=== PATIENT | female | born 1980 | race Caucasian/White ===

== ENCOUNTER 2017-10-14 17:54 | Inpatient (IN) | payer MEDICAID, OTHER ==
[~2017-10-14] VITALS: Ht 162.6 cm; Wt 67.0 kg
[~2017-10-14 17:54] MED LIST: CYCL-36 PO; ZOLO100T PO
[2017-10-14 18:09] VITALS: BP 143/83; PULSE 111; RESP 17; TEMP 98.3; O2SAT 99
[2017-10-14 19:37] VITALS: BP 138/83; PULSE 106; RESP 18; O2SAT 99
--- NOTE | 2017-10-14 19:46 | PD ---
HPI Chief Complaint: Neuro Symptoms/ Deficits Time Seen by Provider: 19:33 Travel History International Travel<30 days: No Contact w/Intl Traveler<30days: No Traveled to known affect area: No History of Present Illness HPI 37-year-old female presents for evaluation. She reports that yesterday evening she developed weakness in arms and legs. Specifically she reports that she developed weakness in her right leg, then her left leg, shortly thereafter in both arms. She felt like she was dragging her feet. 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 She follows up with her primary care physician, Dr. Nielsen, who spoke with neurologist Dr. Castellanos and it was recommended that he come here for admission and neurology consult. She reports that the weakness in her arms has resolved but her legs still feel weak. She also reports a headache. She also reports that she had some word finding issues yesterday. H symptoms are moderate with no obvious aggravating or relieving factors. She denies any bowel or bladder incontinence, saddle anesthesia, abdominal pain, chest pain, shortness of breath, edema. She denies any recent travel. She denies any recent abdominal or pulmonary illness. She denies any ocular pain or blurred vision. She reports the past surgical history of hysterectomy as well as fusion of the T2-S1 spine in the past. She has never had this problem before. She does report that she has been having myalgias in her upper and lower extremities for the past several months and her primary care physician diagnosed her with peripheral neuropathy. [facility] Past Medical History Hypertension: Yes Neurologic: Yes (nueropathy) ?: Not Past Surgical History Appendectomy: Yes Section: Yes Neurologic Surgery: Yes (spinal fusion) Social History Alcohol Use: No Tobacco Use: Yes Substance Use: No Allergies-Medications (Allergen,Severity, Reaction): Coded Allergies: No Known Allergies (Unverified , 04/20/15) Reported Meds & Prescriptions Reported Meds & Active Scripts Active Reported Hydrochlorothiazide 12.5 Mg Cap 12.5 Mg PO DAILY Zantac (Ranitidine HCl) 150 Mg Tab 150 Mg PO DAILY Adderall Xr 24 HR (Amphetamine/Dextroamphetamine) 20 Mg Cap 20 Mg PO DAILY Once daily in the morning. Review of Systems Except as stated in HPI: all other systems reviewed are Neg Physical Exam Narrative GENERAL: Well-developed well-nourished female no acute distress SKIN: Warm and dry. HEAD: Atraumatic. Normocephalic. EYES: Pupils equal and round. No scleral icterus. No injection or drainage. ENT: No nasal bleeding or discharge. Mucous membranes pink and moist. NECK: Trachea midline. No JVD. CARDIOVASCULAR: Regular rate and rhythm. No murmur appreciated. RESPIRATORY: No accessory muscle use. Clear to auscultation. Breath sounds equal bilaterally. GASTROINTESTINAL: Abdomen soft, non-tender, nondistended. Hepatic and splenic margins not palpable. MUSCULOSKELETAL: No obvious deformities. Some limited range of motion in the lower extremities at the hip, knee and ankle level. 4 out of 5 muscle strength hip flexion and extension, leg flexion and extension, dorsi and plantar flexion , 5 out of 5 muscle strength arm flexion and extension, vice president payment strength appears normal. NEUROLOGICAL: Awake and alert. No obvious cranial nerve deficits. Motor grossly within normal limits. Normal speech. Sensation is intact in the upper and lower extremities. 2+ biceps tendon reflex bilaterally. 1+ Achilles and patellar tendon reflex bilaterally. Negative Babinski. No clonus. PSYCHIATRIC: Appropriate mood and affect; insight and judgment normal. Data Data Last Documented VS Vital Signs Date Time Temp Pulse Resp B/P (MAP) Pulse Ox O2 Delivery O2 Flow Rate FiO2 10/14/17 19:37 106 18 138/83 (101) 99 Room Air 10/14/17 18:09 98.3 Orders Orders Electrocardiogram (10/14/17 19:37) Prothrombin Time / Inr (Pt) (10/14/17 19:37) Act Partial Throm Time (Ptt) (10/14/17 19:37) Complete Blood Count With Diff (10/14/17 19:37) Basic Metabolic Panel (Bmp) (10/14/17 19:37) Creatine Kinase (Cpk) (10/14/17 19:37) Urinalysis - C+S If Indicated (10/14/17 19:37) Iv Access Insert/Monitor (10/14/17 19:37) Magnesium (Mg) (10/14/17 19:37) Mri Brain W&W/O Contrast (10/14/17 ) Mri C Spine W&W/O Contrast (10/14/17 ) Mri T Spine W & W/O Contrast (10/14/17 ) Mri L Spine W&W/O Contrast (10/14/17 ) Mra Brain W/O Contrast (Cow) (10/14/17 ) Mra Carotids W/O Contrast (10/14/17 ) Consult Neurology (10/14/17 ) Oxycodone-Acetamin 5-325 Mg (Percocet (10/14/17 20:15) (Hub Use Only)Inp Phy Cons/Ref (10/14/17 ) Csf Cell Count + Differential (10/14/17 21:22) Total Protein, Csf (10/14/17 21:22) Glucose, Csf (10/14/17 21:22) Csf B.Burgdorfer Igg&Igm Lymes (10/14/17 21:22) Csf B.Burgdorferi Dna Lymes (10/14/17 21:22) Lumbar Puncture (10/14/17 ) Csf Culture And Gram Stain (10/14/17 21:22) Admit Order (Ed Use Only) (10/14/17 21:22) Labs Laboratory Tests Test 10/14/17 20:00 White Blood Count 11.2 TH/MM3 Red Blood Count 4.62 MIL/MM3 Hemoglobin 14.3 GM/DL Hematocrit 41.9 % Mean Corpuscular Volume 90.6 FL Mean Corpuscular Hemoglobin 31.0 PG Mean Corpuscular Hemoglobin Concent 34.2 % Red Cell Distribution Width 13.2 % Platelet Count 188 TH/MM3 Mean Platelet Volume 10.9 FL Neutrophils (%) (Auto) 82.5 % Lymphocytes (%) (Auto) 7.3 % Monocytes (%) (Auto) 10.0 % Eosinophils (%) (Auto) 0.0 % Basophils (%) (Auto) 0.2 % Neutrophils # (Auto) 9.2 TH/MM3 Lymphocytes # (Auto) 0.8 TH/MM3 Monocytes # (Auto) 1.1 TH/MM3 Eosinophils # (Auto) 0.0 TH/MM3 Basophils # (Auto) 0.0 TH/MM3 CBC Comment DIFF FINAL Differential Comment Prothrombin Time 10.0 SEC Prothromb Time International Ratio 1.0 RATIO Activated Partial Thromboplast Time 27.6 SEC Blood Urea Nitrogen 10 MG/DL Creatinine 0.74 MG/DL Random Glucose 95 MG/DL Calcium Level 10.0 MG/DL Magnesium Level 2.1 MG/DL Sodium Level 139 MEQ/L Potassium Level 3.3 MEQ/L Chloride Level 102 MEQ/L Carbon Dioxide Level 25.1 MEQ/L Anion Gap 12 MEQ/L Estimat Glomerular Filtration Rate 88 ML/MIN Total Creatine Kinase 124 U/L MDM Medical Decision Making Medical Screen Exam Complete: Yes Emergency Medical Condition: Yes Medical Record Reviewed: Yes Differential Diagnosis Gullian [place] versus multiple sclerosis versus spinal stenosis Narrative Course 37-year-old female with complaints of weakness in extremities started yesterday. We will obtain basic lab work, will discuss with the on-call neurologist. Discussed with neurologist Dr. Castellanos requests routine MRIs of the brain, cervical, thoracic, lumbar spine with and without contrast as well as MRA of the brain and carotids, likely will require lumbar puncture tomorrow as well as routine neurology consult. Diagnosis Primary Impression: Upper extremity weakness Additional Impression: Lower extremity weakness Admitting Information Admitting Physician Requests: Admit Germain Franks Oct 14, 2017 19:46
[2017-10-14] MEDS ORDERED: HYDR12.57 PO (19:49)
[2017-10-14] MEDS ORDERED: ZANT150T2 PO (19:49)
[2017-10-14] MEDS ORDERED: ADDE20XR PO (19:49)
--- NOTE | 2017-10-14 20:10 | PD ---
Data Data Last Documented VS Vital Signs Date Time Temp Pulse Resp B/P (MAP) Pulse Ox O2 Delivery O2 Flow Rate FiO2 10/14/17 19:37 106 18 138/83 (101) 99 Room Air 10/14/17 18:09 98.3 Orders Orders Electrocardiogram (10/14/17 19:37) Prothrombin Time / Inr (Pt) (10/14/17 19:37) Act Partial Throm Time (Ptt) (10/14/17 19:37) Complete Blood Count With Diff (10/14/17 19:37) Basic Metabolic Panel (Bmp) (10/14/17 19:37) Creatine Kinase (Cpk) (10/14/17 19:37) Urinalysis - C+S If Indicated (10/14/17 19:37) Iv Access Insert/Monitor (10/14/17 19:37) Magnesium (Mg) (10/14/17 19:37) Mri Brain W&W/O Contrast (10/14/17 ) Mri C Spine W&W/O Contrast (10/14/17 ) Mri T Spine W & W/O Contrast (10/14/17 ) Mri L Spine W&W/O Contrast (10/14/17 ) Mra Brain W/O Contrast (Cow) (10/14/17 ) Mra Carotids W/O Contrast (10/14/17 ) Consult Neurology (10/14/17 ) MDM Supervised Visit with BEN: Yes Narrative Course The history, exam, and medical decision-making in the associated mid-level provider note were completed with my assistance. I reviewed and agree with the findings presented. I attest that I had a [id number] encounter with the patient on the same day, and personally performed and documented my assessment and findings in the medical record. *My assessment and Findings: 37-year-old woman presents to the emergency department referred by her primary physician for evaluation of abnormal neurologic symptoms. She has been having weakness paresthesias arms and legs, worse in the lower extremities. Intermittent with some fluctuating course, progressive over the past 24 hours or so. Went to an outside ED had CT scans of her head neck and lower back that were reportedly unremarkable. She is a history of s was seems to be fairly extensive spinal fusion for scoliosis. No history of previous similar symptoms otherwise. She does have some chronic pain issues is been ongoing fairly diffuse in her arms and legs for several months. Was seeing a neurosurgeon, Dr. Stewart, recommended surgery on her neck. She did not want to have any more fusions done shows overall well now. No severe neurologic deficits but does have some subtle findings on neurologic exam. Her primary care physician only spoke with Dr. Castellanos, neurology on-call. We will plan on admission, MRI imaging, further workup. Gilberto Price MD Oct 14, 2017 20:10
[2017-10-14] MEDS ORDERED: oxyCODONE/ACETAMINOPHEN 5 MG/325 MG TAB PO ONE (20:15)
[2017-10-14 20:50] LABS: AUTOMATED NEUTROPHIL # 9.2 TH/MM3 (1.8-7.7); BASOPHIL % 0.2 % (0.0-2.0); HEMATOCRIT 41.9 % (35.0-46.0); HEMOGLOBIN 14.3 GM/DL (11.6-15.3); LYMPH % 7.3 % (9.0-44.0); LYMPHOCYTE # 0.8 TH/MM3 (1.0-4.8); MEAN CELL VOLUME 90.6 FL (80.0-100.0); MEAN CORPUSCULAR HGB CONC 34.2 % (32.0-36.0); MEAN PLATELET VOLUME 10.9 FL (7.0-11.0); MONOCYTE # 1.1 TH/MM3 (0-0.9); NEUT % 82.5 % (16.0-70.0); PLATELET COUNT 188 TH/MM3 (150-450); RED BLOOD COUNT 4.62 MIL/MM3 (4.00-5.30); RED CELL DISTRIBUTION WIDTH 13.2 % (11.6-17.2); WHITE BLOOD COUNT 11.2 TH/MM3 (4.0-11.0)
[2017-10-14 21:04] LABS: BICARBONATE 25.1 MEQ/L (21.0-32.0); CREATININE 0.74 MG/DL (0.50-1.00); MAGNESIUM 2.1 MG/DL (1.5-2.5)
[2017-10-14] MEDS ORDERED: ACETAMINOPHEN 325 MG TAB PO PRN (22:30)
[2017-10-14] MEDS ORDERED: POTASSIUM CHLORIDE 10 MEQ CONTROLLED RELEASE TAB PO ONE (22:30)
[2017-10-14] MEDS ORDERED: SODIUM CHLORIDE 0.9% FLUSH 10 ML FLUSH IV FLUSH PRN (22:30)
[2017-10-14] MEDS ORDERED: NALOXONE HCL 0.4 MG/ML AMP IV PUSH PRN (22:30)
[2017-10-14] MEDS ORDERED: LORazepam 2 MG/ML VIAL IV PUSH PRN (23:30)
[2017-10-14 23:32] VITALS: BP 108/65; PULSE 87; RESP 16; TEMP 98.4; O2SAT 96
--- NOTE | 2017-10-14 23:47 | HHI.HP ---
HPI Service [facility] Primary Care Physician Unknown Admission Diagnosis Acute extremity weakness Diagnoses: Travel History International Travel<30 Days: No Contact w/Intl Traveler <30 Da: No Traveled to Known Affected Are: No History of Present Illness 37-year-old female with past medical history significant for scoliosis, hypertension, hyperlipidemia and peripheral neuropathy presents emergency department for evaluation of upper and lower extremity weakness. The patient reports that yesterday she had bilateral foot weakness that then spread from her right leg to her left leg. She reports she was so weak she was unable to ambulate. She was seen at [facility] where a CT of the head and neck were found to be within normal limits. The patient reports that yesterday on her way to the hospital she then developed bilateral upper extremity weakness and had difficulty moving her arms and hands. She was discharged from [facility] with instructions to follow-up with her primary care physician which she did today. The patient saw her PCP who then called the neurologist on-call who suggested coming to the emergency department for further evaluation. The patient reports that her upper extremity weakness has mostly resolved but endorses intermittent slurred speech. She complains of bilateral thigh and hip pain and states her sciatica is acting up. She also endorses a headache. She denies any chest pain or shortness of breath. No abdominal pain. No nausea/vomiting/diarrhea. Review of Systems Except as stated in HPI: all other systems reviewed are Neg Past Family Social History Past Medical History scoliosis, hypertension, hyperlipidemia and peripheral neuropathy Past Surgical History T2-S1 fusion for scoliosis 2 Appendectomy Hysterectomy Breast augmentation Reported Medications Reported Meds & Active Scripts Active Reported Hydrochlorothiazide 12.5 Mg Cap 12.5 Mg PO DAILY Zantac (Ranitidine HCl) 150 Mg Tab 150 Mg PO DAILY Adderall Xr 24 HR (Amphetamine/Dextroamphetamine) 20 Mg Cap 20 Mg PO DAILY Once daily in the morning. Allergies: Coded Allergies: No Known Allergies (Unverified Allergy, Unknown, 10/14/17) Family History Father with diabetes mellitus Social History Smokes approximately 1 pack per day. Rare alcohol. Denies illicit drugs. Physical Exam Vital Signs Vital Signs Date Time Temp Pulse Resp B/P (MAP) Pulse Ox O2 Delivery O2 Flow Rate FiO2 10/14/17 23:32 98.4 87 16 108/65 (79) 96 10/14/17 19:37 106 18 138/83 (101) 99 Room Air 10/14/17 19:37 106 22 99 Room Air 10/14/17 18:09 98.3 111 17 143/83 (103) 99 Physical Exam GENERAL: This is a well-nourished, well-developed patient, in no apparent distress. SKIN: No rashes, ecchymoses or lesions. Cool and dry. HEAD: Atraumatic. Normocephalic. No temporal or scalp tenderness. EYES: Pupils equal round and reactive. Extraocular motions intact. No scleral icterus. No injection or drainage. ENT: Nose without bleeding, purulent drainage or septal hematoma. Throat without erythema, tonsillar hypertrophy or exudate. Uvula midline. Airway patent. NECK: Trachea midline. No JVD or lymphadenopathy. Supple, nontender, no meningeal signs. CARDIOVASCULAR: Regular rate and rhythm without murmurs, gallops, or rubs. RESPIRATORY: Clear to auscultation. Breath sounds equal bilaterally. No wheezes , rales, or rhonchi. GASTROINTESTINAL: Abdomen soft, non-tender, nondistended. No hepato-splenomegaly , or palpable masses. No guarding. MUSCULOSKELETAL: Extremities without clubbing, cyanosis, or edema. No joint tenderness, effusion, or edema noted. No calf tenderness. NEUROLOGICAL: Awake and alert. Cranial nerves II through XII intact. Mildly slurred speech. 5/5 strength in the bilateral upper extremities including hand broom maker strength. Able to lift bilateral lower extremities off the bed and resist gravity. 3/5 strength in the bilateral lower extremities and feet. Laboratory Laboratory Tests Test 10/14/17 20:00 White Blood Count 11.2 Red Blood Count 4.62 Hemoglobin 14.3 Hematocrit 41.9 Mean Corpuscular Volume 90.6 Mean Corpuscular Hemoglobin 31.0 Mean Corpuscular Hemoglobin Concent 34.2 Red Cell Distribution Width 13.2 Platelet Count 188 Mean Platelet Volume 10.9 Neutrophils (%) (Auto) 82.5 Lymphocytes (%) (Auto) 7.3 Monocytes (%) (Auto) 10.0 Eosinophils (%) (Auto) 0.0 Basophils (%) (Auto) 0.2 Neutrophils # (Auto) 9.2 Lymphocytes # (Auto) 0.8 Monocytes # (Auto) 1.1 Eosinophils # (Auto) 0.0 Basophils # (Auto) 0.0 CBC Comment DIFF FINAL Differential Comment Prothrombin Time 10.0 Prothromb Time International Ratio 1.0 Activated Partial Thromboplast Time 27.6 Blood Urea Nitrogen 10 Creatinine 0.74 Random Glucose 95 Calcium Level 10.0 Magnesium Level 2.1 Sodium Level 139 Potassium Level 3.3 Chloride Level 102 Carbon Dioxide Level 25.1 Anion Gap 12 Estimat Glomerular Filtration Rate 88 Total Creatine Kinase 124 Result Diagram: 10/14/17199910/14/171999 Caprini VTE Risk Assessment Caprini VTE Risk Assessment: No/Low Risk (score <= 1) Caprini Risk Assessment Model Point Value = 1 Point Value = 2 Point Value = 3 Point Value = 5 Age 41-60 Minor surgery BMI > 25 kg/m2 Swollen legs Varicose veins or History of unexplained or recurrent spontaneous Oral contraceptives or hormone replacement Sepsis (< 1 month) Serious lung disease, including pneumonia (< 1 month) Abnormal pulmonary function Acute myocardial infarction Congestive heart failure (< 1 month) History of inflammatory bowel disease Medical patient at bed rest Age 61-74 Arthroscopic surgery Major open surgery (> 45 min) Laparoscopic surgery (> 45 min) Malignancy Confined to bed (> 72 hours) Immobilizing plaster cast Central venous access Age >= 75 History of VTE Family history of VTE Factor V Leiden Prothrombin [id number] Lupus anticoagulant Anticardiolipin antibodies Elevated serum homocysteine Heparin-induced thrombocytopenia Other congenital or acquired thrombophilia Stroke (< 1 month) Elective arthroplasty Hip, pelvis, or leg fracture Acute spinal cord injury (< 1 month) Prophylaxis Regimen Total Risk Factor Score Risk Level Prophylaxis Regimen 0-1 Low Early ambulation 2 Moderate Order ONE of the following: *Sequential Compression Device (SCD) *Heparin 5000 units SQ BID 3-4 Higher Order ONE of the following medications: *Heparin 5000 units SQ TID *Enoxaparin/Lovenox 40 mg SQ daily (WT < 150 kg, CrCl > 30 mL/min) *Enoxaparin/Lovenox 30 mg SQ daily (WT < 150 kg, CrCl > 10-29 mL/min) *Enoxaparin/Lovenox 30 mg SQ BID (WT < 150 kg, CrCl > 30 mL/min) AND/OR *Sequential Compression Device (SCD) 5 or more Highest Order ONE of the following medications: *Heparin 5000 units SQ TID (Preferred with Epidurals) *Enoxaparin/Lovenox 40 mg SQ daily (WT < 150 kg, CrCl > 30 mL/min) *Enoxaparin/Lovenox 30 mg SQ daily (WT < 150 kg, CrCl > 10-29 mL/min) *Enoxaparin/Lovenox 30 mg SQ BID (WT < 150 kg, CrCl > 30 mL/min) AND *Sequential Compression Device (SCD) Assessment and Plan Assessment and Plan Assessment/plan: 1. Acute onset upper and lower extremity weakness Unclear etiology Per patient report, head CT performed at [facility] yesterday within normal limits Neurology consulted, appreciate recommendations Lumbar puncture pending MRI brain, spine pending MRA brain, carotids pending 2. Hypertension Continue HCTZ 3. Hyperlipidemia Patient does not take a statin secondary to transaminitis 4. Hypokalemia Status post p.o. repletion Monitor BMP FEN N.p.o. Electrolytes: As above NS at 84 cc/hour SCDs Physician Certification 2 Midnight Certification Type: Admission for Inpatient Services Order for Inpatient Services The services are ordered in accordance with Medicare regulations or non- Medicare payer requirements, as applicable. In the case of services not specified as inpatient-only, they are appropriately provided as inpatient services in accordance with the 2-midnight benchmark. Estimated LOS (days): 2 2 days is the estimated time the patient will need to remain in the hospital, assuming treatment plan goals are met and no additional complications. Post-Hospital Plan: Not yet determined Zara Garrido MD Oct 14, 2017 23:47
[2017-10-14] MEDS: SODIUM CHLOR 0.9% 1000 ML INJ 1,000 ML IV SCH (23:54)
[2017-10-14] MEDS: ZOLPIDEM TARTRATE 5 MG TAB PO PRN (23:55)
[2017-10-14] MEDS: ACETAMINOPHEN/HYDROcodone 325 MG/5 MG TAB PO PRN (23:55)
[2017-10-15 03:55] VITALS: BP 108/60; PULSE 84; RESP 16; TEMP 98.4; O2SAT 99
[2017-10-15 05:06] LABS: AUTOMATED NEUTROPHIL # 6.3 TH/MM3 (1.8-7.7); BASOPHIL % 0.1 % (0.0-2.0); EOSINOPHIL % 0.1 % (0.0-4.0); HEMATOCRIT 36.1 % (35.0-46.0); HEMOGLOBIN 12.4 GM/DL (11.6-15.3); LYMPH % 17.3 % (9.0-44.0); LYMPHOCYTE # 1.5 TH/MM3 (1.0-4.8); MEAN CELL VOLUME 90.5 FL (80.0-100.0); MEAN CORPUSCULAR HEMOGLOBIN 31.2 PG (27.0-34.0); MEAN CORPUSCULAR HGB CONC 34.5 % (32.0-36.0); MEAN PLATELET VOLUME 10.4 FL (7.0-11.0); MONO % 9.5 % (0.0-8.0); MONOCYTE # 0.8 TH/MM3 (0-0.9); PLATELET COUNT 154 TH/MM3 (150-450); RED BLOOD COUNT 3.98 MIL/MM3 (4.00-5.30); RED CELL DISTRIBUTION WIDTH 13.1 % (11.6-17.2); WHITE BLOOD COUNT 8.7 TH/MM3 (4.0-11.0)
[2017-10-15 05:22] LABS: BICARBONATE 26.7 MEQ/L (21.0-32.0); CREATININE 0.58 MG/DL (0.50-1.00)
[2017-10-15] MEDS: ACETAMINOPHEN/HYDROcodone 325 MG/5 MG TAB PO PRN ×4 (06:51→21:02)
[2017-10-15 07:27] VITALS: BP 106/62; PULSE 79; RESP 16; TEMP 98.1; O2SAT 98
[2017-10-15] MEDS: FAMOTIDINE 20 MG TAB PO SCH (08:08)
[2017-10-15] MEDS: SODIUM CHLORIDE 0.9% FLUSH 10 ML FLUSH IV FLUSH SCH ×2 (08:08→20:59)
[2017-10-15] MEDS ORDERED: LORazepam 2 MG/ML VIAL IV PUSH PRN (08:15)
[2017-10-15] MEDS ORDERED: NON-FORMULARY DRUG (Ranitidine (Zantac) 150 MG) PO SCH (09:00)
[2017-10-15] MEDS ORDERED: HYDROCHLOROTHIAZIDE 12.5 MG CAP PO SCH (09:00)
--- NOTE | 2017-10-15 09:09 | EKG ---
Date Performed: 10/14/2017 Time Performed: 20:40:13 PTAGE: 37 years EKG: Sinus rhythm NONSPECIFIC T-WAVE ABNORMALITY BORDERLINE ECG NO PREVIOUS TRACING DOCTOR: Gilberto Zhong Interpretating Date/Time 10/15/2017 09:08:31
--- NOTE | 2017-10-15 09:59 | RADRPT ---
EXAM DATE: 10/15/2017 9:30 AM EDT AGE/SEX: 37 years / Female INDICATIONS: CVA. Upper and lower extremity weakness. CLINICAL DATA: This is the patient's initial encounter. Patient reports that signs and symptoms have been present for 2 days and indicates a pain score of 0/10. MEDICAL/SURGICAL HISTORY: Hypertension. Scoliosis. Appendectomy. section. Hysterect sherman. Teodoro rods. Breast implants. COMPARISON: No prior exams available for comparison. TECHNIQUE: 3D [id number] MRA was performed. Source images, multiplanar STS MIP, and 3D volum e MIP reconstructions were reviewed. FINDINGS: There is excellent visualization of the major intracranial arteries out to the second-order branch ve ssels. There is no evidence for aneurysm, vessel truncation or stenosis, and no evidence for vascula r malformation. CONCLUSION: 1. Negative for major branch vessel occlusion. Electronically signed by: Deacon Andrade MD 10/15/2017 9:58 AM EDT
--- NOTE | 2017-10-15 10:05 | RADRPT ---
EXAM DATE: 10/15/2017 9:26 AM EDT AGE/SEX: 37 years / Female INDICATIONS: CVA. Upper and lower extremity weakness. CLINICAL DATA: This is the patient's initial encounter. Patient reports that signs and symptoms have been present for 2 days and indicates a pain score of 0/10. MEDICAL/SURGICAL HISTORY: Hypertension. Scoliosis. Appendectomy. section. Hysterect sherman. Teodoro rods. Breast implants. COMPARISON: No prior exams available for comparison. TECHNIQUE: Multiplanar, multisequence examination of the brain was performed without contrast. FINDINGS: Cerebrum: The ventricles are normal for age. No evidence of midline shift, mass lesion, hemorrhage or acute infarction. No extraaxial fluid collections are seen. The pituitary gland and suprasellar cistern are normal in configuration. White Matter: No significant signal abnormalities are seen in the white matter. Posterior Fossa: The cerebellum and brainstem are intact. The 4th ventricle is midline. The cerebel lopontine angle is unremarkable. The cerebellar tonsils are normal in position. Diffusion Imaging: No focal areas of restricted diffusion are seen. No evidence of acute infarction . Extracranial: The visualized portions of the orbits and paranasal sinuses are unremarkable. CONCLUSION: 1. Negative MRI of the brain. Do not see significant white matter changes. I don't see evidence for an infarct. I don't see evidence for demyelinating process. Electronically signed by: Deacon Andrade MD 10/15/2017 10:03 AM EDT
--- NOTE | 2017-10-15 10:11 | RADRPT ---
EXAM DATE: 10/15/2017 9:59 AM EDT AGE/SEX: 37 years / Female INDICATIONS: Myelopathy. Lower extremity weakness. CLINICAL DATA: This is the patient's initial encounter. Patient reports that signs and symptoms have been present for 2 days and indicates a pain score of 0/10. MEDICAL/SURGICAL HISTORY: Hypertension. Scoliosis. Appendectomy. section. Hysterect sherman. Teodoro rods. Breast implants. COMPARISON: No prior exams available for comparison. TECHNIQUE: Multiplanar, multisequence MRI examination of the lumbar spine was performed without and with 20 ml Omniscan (gadodiamide) contrast as a single exam dose. FINDINGS: The most caudal-appearing lumbar vertebra is numbered as L5. Vertebra: Vail rods causing extensive artifact. Conus: Normal level and configuration. Post Contrast: No abnormal areas of contrast enhancement are seen. Patient arrives are causing extensive artifact. There is apparent transpedicular fixation from L3 to S1 with allograft as well. The marrow signal about the allograft is minimal inhomogeneous nonspecific fashion. T12-L1: Disc neural foramen and facets unremarkable. L1-2: Disc, neural foramen and facets unremarkable. Spinal canal is generous. L3-4: Artifact is present. There is no significant neural foraminal encroachment or spinal stenosis. L4-5: Artifact is present L4-5. Disc and neural foramen are unremarkable. Facets are obliterated by a rtifact. L5-S1: Transpedicular fixation is evident. Neural foramen are adequate. Facets facets obscured by art ifact. Retroperitoneum is unremarkable. There is no abnormal contrast enhancement. CONCLUSION: 1. Extensive artifact. I do not see an etiology for patient's myelopathy. Artifact does obscure the conus. Electronically signed by: Deacon Andrade MD 10/15/2017 10:09 AM EDT
[2017-10-15] MEDS ORDERED: GADODIAMIDE PF 287 MG/ML 20 ML VIAL (for RAD MRI) IVCONTRAST ONE (11:06)
[2017-10-15 11:59] VITALS: BP 113/69; PULSE 72; RESP 18; TEMP 98.2; O2SAT 99
--- NOTE | 2017-10-15 12:00 | PD.RAD ---
Post Procedure Progress Note Pre Procedure Diagnosis: (1) Lower extremity weakness Post Procedure Diagnosis: (1) Lower extremity weakness Procedure Date: Oct 15, 2017 Supervising Radiologist: Nitin Phelan JR Proceduralist/Assist: Joyce Sharma, RT(R), Goyo Purdy RT(R) Anesthesia: Local Plan of Activity Patient to Unit: Nursing Unit Patient Condition: Good See PACS Report for procedural detail/treatment Spinal Procedure Lumbar Puncture L4-L5 Fluid Removal (CCs): 12 Fluid Description: Clear Puncture Time: 11:50 Findings: Opening pressure: 11.5 cmH20 Jr. Tapan,Nitin Francicso MD Oct 15, 2017 12:00
[2017-10-15] MEDS: SODIUM CHLOR 0.9% 1000 ML INJ 1,000 ML IV SCH (12:24)
[2017-10-15 12:40] LABS: TOTAL PROTEIN,CSF 45.7 MG/DL (15.0-45.0)
--- NOTE | 2017-10-15 12:43 | RADRPT ---
EXAM DATE: 10/15/2017 12:21 PM EDT AGE/SEX: 37 years / Female INDICATIONS: Patient presents with bilateral weakness in arms and legs in need of lumbar puncture wi th opening pressures to evaluate for multiple sclerosis. CLINICAL DATA: This is the patient's initial encounter. Patient reports that signs and symptoms have been present for 2 days and indicates a pain score of 1/10. MEDICAL/SURGICAL HISTORY: Hypertension. Peripheral neuropathy.Scoliosis.Hyperlipidemia. Append ectomy. T2-S1 fusion for scoliosis. X2.Hysterectomy.Breast augmentation. COMPARISON: No prior exams available for comparison. FLUORO TIME (min): 1.4 IMAGE SERIES: 2 ACCESS SITE: L4-5 LUMBAR PUNCTURE TIME: 1151 hours OPENING PRESSURE: 11.5 cm of water CLOSING PRESSURE: 0 not requested FLUID: Total volume of 14 cc of clear fluid was removed. Fluid was sent to lab for ordered studies. . . PROCEDURE: 1. Fluoroscopic guided lumbar puncture. 2. Recording of opening pressure. The risks, benefits and alternatives to the procedure were explained and verbal and written consent w as obtained. The site was prepped in sterile fashion. Full sterile technique was used, including ca p, mask, sterile gloves and gown and a large sterile sheet. Hand hygiene and 2% chlorhexidine and/or betadine/alcohol prep was utilized per protocol for cutaneous antisepsis. The skin and subcutaneous tissues were infiltrated with local anesthetic solution. Fluoroscopic evaluation of the lumbar spine shows posterior fixation hardware extending throughout th e entire lumbar spine. With fluoroscopic guidance the lumbar thecal sac was punctured at the above le shantanu described above and the opening pressure was recorded. The above described fluid was removed wit hout difficulty. The patient tolerated the procedure well and there were no complications. CONCLUSION: 1. Uncomplicated fluoroscopically guided lumbar puncture with pressures as above. Electronically signed by: Nitin Phelan MD 10/15/2017 12:42 PM EDT
--- NOTE | 2017-10-15 12:46 | RADRPT ---
EXAM DATE: 10/15/2017 10:31 AM EDT AGE/SEX: 37 years / Female INDICATIONS: Stenosis. CLINICAL DATA: This is the patient's initial encounter. Patient reports that signs and symptoms have been present for 2 days and indicates a pain score of 0/10. MEDICAL/SURGICAL HISTORY: Hypertension. Scoliosis. Appendectomy. section. Hysterect sherman. Teodoro leticia. Breast implants. COMPARISON: No prior exams available for comparison. TECHNIQUE: 20 ml Omniscan (gadodiamide) contrast infused MRA (single exam dose) of the extracranial circulation was performed using a neurovascular coil. Postprocessing was performed, including rotat ing sub-volume maximum intensity projections of each carotid artery, rotating full-volume maximum int ensity projections of both carotid arteries, sagittal and coronal sliding thin-slab reformations of e ach carotid artery, and left oblique sliding thin-slab reformation through the aortic arch to include the origin of the arch branch vessels. FINDINGS: Aortic Arch : There is a three-vessel origin of the great vessels from the aorta. No evidence of o stial narrowing. Right Carotid : The common carotid artery is intact. The carotid bulb has a normal configuration wi thout ulceration or narrowing. The internal carotid artery lumen is smooth without stenosis. The ex ternal carotid artery is intact. Left Carotid : The common carotid artery is intact. The carotid bulb has a normal configuration wit hout ulceration or narrowing. The internal carotid artery lumen is smooth without stenosis. The ext ernal carotid artery is intact. Vertebrals : The vertebral arteries have a symmetric diameter. No stenotic lesions are seen. CONCLUSION: 1. Negative MRA of the carotid circulation. Percent stenosis is calculated using the diameter of the stenotic region over the diameter of the nor mal distal internal carotid artery Electronically signed by: Jeremy Andrade MD 10/15/2017 12:45 PM EDT
--- NOTE | 2017-10-15 12:55 | RADRPT ---
EXAM DATE: 10/15/2017 10:35 AM EDT AGE/SEX: 37 years / Female INDICATIONS: Myelopathy. Upper and lower extremity weakness. CLINICAL DATA: This is the patient's initial encounter. Patient reports that signs and symptoms have been present for 2 days and indicates a pain score of 0/10. MEDICAL/SURGICAL HISTORY: Hypertension. Scoliosis. Appendectomy. Hysterectomy. sect ion. Teodoro rods. Breast implants. COMPARISON: PCI, MR CERVICAL SPINE W/O CONTRAST, 03/28/2017. . TECHNIQUE: Multiplanar, multisequence MRI examination of the cervical spine was performed without co ntrast. FINDINGS: Vertebrae: Normal vertebral body height. Homogeneous marrow signal. Alignment: Normal. Cord: Normal configuration and signal. Post Fossa: The cerebellar tonsils are normal in position. C2-C3: The thecal sac has a normal configuration. There is no evidence of disc herniation or spinal canal stenosis. The neural foramina are patent bilaterally. C3-C4: The thecal sac has a normal configuration. There is no evidence of disc herniation or spinal canal stenosis. The neural foramina are patent bilaterally. C4-C5: The appearance of this level is stable from the prior examination. A broad-based right paper baler ior lateral disc protrusion flattens the right ventral portion of the cord. No signal change in the c ord. There is effacement of the right lateral recess. Mild narrowing of the left lateral recess. The anterior to posterior dimension of the central canal in the midline is 9 mm. Neural foramina are espinosa nt bilaterally. C5-C6: There has been a slight change in appearance from the prior study. There is now a broad-based right posterior lateral disc protrusion similar to the level above this. This effaces the right late ral recess and abuts with flattening of the right ventral portion of the cord. The anterior to paper baler ior dimension of the central canal is 9 mm within the midline. Left lateral recess and left neural fo ramen are patent. The disc extends slightly into the right neural foramen. C6-C7: There is a minimal broad-based disc bulge. No abutment of the cord or central canal stenosis. Neural foramina are patent bilaterally. C7-T1: No epidural impressions seen. CONCLUSION: 1. The only interval change from the prior examination has been the development of a broad-based dis c protrusion at C5-C6 that effaces the right lateral recess and flattens the right ventral portion of the cord. There is a similar protrusion seen at C4-C5 that is stable from the prior exam. Electronically signed by: Nitin Phelan MD 10/15/2017 12:54 PM EDT
[2017-10-15 13:35] LABS: SUPERNATE COLOR TUBE #1 CLEAR (CLEAR); VOLUME TUBE # 1 3.2 ML
[2017-10-15 13:36] LABS: CSF LYMPHOCYTES 75 %; CSF MONOCYTES 25 %; CSF NEUTROPHILS 0 %; RBC TUBE #4 28 /MM3; WBC TUBE #4 2 /MM3 (0-10)
[2017-10-15] MEDS ORDERED: POTASSIUM CHLORIDE 20 MEQ CONTROLLED RELEASE TAB PO ONE (13:45)
--- NOTE | 2017-10-15 14:01 | HHI.PR ---
Subjective Remarks Patient says that weakness has improved. Denies any chest pain or shortness of breath. She reports chronic low back pain for which she would like narcotics. Objective Vital Signs Date Time Temp Pulse Resp B/P (MAP) Pulse Ox O2 Delivery O2 Flow Rate FiO2 10/15/17 11:59 98.2 72 18 113/69 (84) 99 10/15/17 07:27 98.1 79 16 106/62 (77) 98 10/15/17 03:55 98.4 84 16 108/60 (76) 99 10/14/17 23:32 98.4 87 16 108/65 (79) 96 10/14/17 19:37 106 18 138/83 (101) 99 Room Air 10/14/17 19:37 106 22 99 Room Air 10/14/17 18:09 98.3 111 17 143/83 (103) 99 Result Diagram: 10/15/17 0420 10/15/17 0420 Objective Remarks GENERAL: She is lying in bed. Appears comfortable. Alert and oriented 3. Patient seen and examined with nurse, Dr. Melgoza. SKIN: Warm and dry. HEAD: Normocephalic. EYES: No scleral icterus. No injection or drainage. NECK: Supple, trachea midline. No JVD. CARDIOVASCULAR: Regular rate and rhythm without murmurs, gallops, or rubs. RESPIRATORY: Breath sounds equal bilaterally. No accessory muscle use. GASTROINTESTINAL: Abdomen soft, non-tender, nondistended. MUSCULOSKELETAL: No cyanosis, or edema. BACK: Nontender without obvious deformity. No CVA tenderness. A/P Assessment and Plan //Acute onset upper and lower extremity weakness Unclear etiology Per patient report, head CT performed at [facility] yesterday within normal limits Neurology consulted, appreciate recommendations Lumbar puncture pending MRI brain, spine pending MRA brain, carotids pending = Workup negative so far. Discussed with neurology. Appreciate assistance. Unlikely, but possible spinal stenosis on cervical spine imaging. Will consult neurosurgery. Follow-up echocardiogram, labs. Appreciate neurology and neurosurgery assistance.. //Hypertension Suspect that hypertension is secondary to Adderall. We will be holding Adderall in the hospital. Hold off on hydrochlorothiazide. //Attention deficit disorder -Hold off on amphetamines in the hospital. Would recommend discontinuation secondary to neurologic symptoms. // Hyperlipidemia Patient does not take a statin secondary to transaminitis // Hypokalemia -3.3. Replace again. Follow. Discharge Planning Pending neurologic workup and clearance Neurosurgery following as well. Ghanshyam Elias MD Oct 15, 2017 14:01
--- NOTE | 2017-10-15 14:18 | MB ---
cc: Mattie Melgoza MD DATE: 10/15/2017 DATE OF : 1980 AGE: [age] years old. REASON FOR CONSULTATION: Weakness, possible transient ischemic attack, possible other causes. HISTORY OF PRESENT ILLNESS: This is a 37-year-old woman with a history of scoliosis, had 2 surgeries at age 18 and years thereafter with a history of hypertension, hyperlipidemia, neuropathy. She comes in because of upper and lower extremity weakness. Apparently, she noted the day prior to that she had foot weakness that spread from her right leg to her left leg and then had trouble ambulating, was unsteady. Apparently was seen at [facility] where workup proved to be unremarkable. Yesterday, on her way to the hospital, she stated that she had some upper extremity weakness in her arms, also had some trouble with her speech, possible slurring of speech. She seems to be back at baseline, but feels that her muscles are very tight, almost like there is spasms in her right biceps. She did have a spinal tap and results are pending. PAST MEDICAL HISTORY: As stated, T2-S1 fusion for scoliosis, x2, appendectomy, hysterectomy, breast augmentation. HOME MEDICINES: 1. Hydrochlorothiazide. 2. Zantac. 3. Adderall. PRIMARY CARE PHYSICIAN: Her primary care doctor is Maximino Hutchinson. ALLERGIES: NONE REPORTED. FAMILY HISTORY: Diabetes in the father. SOCIAL HISTORY: Smokes a pack a day. No illicit drugs and rarely drinks. PHYSICAL EXAMINATION: VITAL SIGNS: Temperature is 98.2, pulse 72, respiratory rate 18, blood pressure 113/69. NECK: Supple. No appreciable bruits. HEART: Regular. NEUROLOGIC: She is awake and alert. She is oriented, and fluent. Visual kelley full. Pupils reactive. Face symmetrical. Tongue midline. She is not dysarthric nor aphasic. Follows commands appropriately. 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 She has no drift, no leg lag. Toes are both downgoing. There is no clonus. She is slightly hyperreflexic in her lower extremities. No Willie sign. Sensory is normal to all modalities. Cerebellar testing normal. Gait is withheld. LABORATORY DATA: Reviewed. Potassium is a bit low at 3.3. Spinal tap: Just some trace blood but her WBC count is 2, RBCs 28, glucose 61, protein 45.7. IMAGING: Brain MRI negative for anything acute. No white matter changes, no demyelination, no infarct. MRA [place] of [place] negative for any major branch occlusion. MRA of carotids negative for any carotid disease. Cervical spine MRI shows interval change from prior exam and a broad-based disk protrusion at C5-C6 that effaces the right lateral recess and flattens the right ventral portion of the cord. Similar protrusion is seen at C4-5 but that is stable. Lumbar spine MRI shows extensive artifact due to the patient's surgery. Opening pressure on her CSF was 11.5 cm of water. IMPRESSION AND PLAN: Weakness that does not localize to one side of the body. It initially was in the leg and went to the other leg and then in the arms. She does have some abnormalities in the C-spine, but unlikely that is the initial primary issue. Spinal tap thus far is nondiagnostic. I do not see any signs of any demyelination or acute inflammatory demyelinating polyneuropathy such as Guillain-Hosston. There is no ptosis, but for the weakness I will go ahead and get some myasthenic labs. There is questionable transient ischemic attack. We will go ahead and get a hypercoagulable panel as well as an echo and an electrocardiogram. I will put her on a baby aspirin. Blood pressure is controlled. I believe we should have Neurosurgery take a look at the C-spine, if it warrants any type of intervention. At this point in time, workup is in progress. Labs have been ordered as well as consults and other studies. Further recommendations will be made. MD DACIA Scanlon/DEMETRIUS , 01:49 PM , 02:18 PM
[2017-10-15 15:03] LABS: AMORPHOUS SEDIMENT, URINE RARE; BACTERIA, URINE FEW /hpf; BILIRUBIN, URINE NEG (NEG); BLOOD, URINE NEG (NEG); GLUCOSE,URINE NEG (NEG); KETONE, URINE NEG (NEG); NITRITE,URINE NEG (NEG); PH, URINE 8.5 (5.0-8.5); SQUAMOUS EPITHELIAL CELL URINE 1 /hpf (0-5); URINE COLOR YELLOW (YELLW/STRAW); URINE LEUKOCYTE ESTERASE NEG (NEG)
--- NOTE | 2017-10-15 15:30 | PD.CONS ---
(Timoteo Wilson MD) HPI Consult Requested By Primary Care Physician Unknown (Timoteo Wilson MD) Service Neurosurgery Consult Requested By Dr. Ghasnhyam Jones Reason for Consult possible spinal stenosis History of Present Illness Ms. Fernandez is a 37 year old female with complaints of extremity weakness and difficulty walking. The patient has had intermittent pain and paresthesias in her extremities that past several months. She underwent neurosurgical evaluation by Dr. Stewart who recommended she have surgery on neck but the patient was not interested to have more surgeries. A few days ago reports she started to develop weakness in her arms and legs. She states if first began on one leg then radiated to the other, then progressed to her arms. She also had speech difficulties. She reports also of difficulty walking feeling as if her foot is turning inwards. Her symptoms are intermittent, comes and goes. She denies bowel or bladder incontinence, fevers or chills. She has a history of scoliosis with prior multilevel spinal fusions. She had undergone Neurological consultation. An MRI brain showed no acute infarcts, and MRI head with no significant stenosis or vessel vascular formations. An MRI of the cervical spine shows a disc protrusion at C5-6 effacing the right lateral recess and flattening the right ventral cord, and also at C4-5 right disc protrusion flattening the right ventral portion of the cord with no signal changes. A lumbar puncture has been obtained and is awaiting further results. Neurosurgical evaluation is requested. (Ewa Clemente) Review of Systems Constitutional: DENIES: Fever, Chills Respiratory: DENIES: Hemoptysis Cardiovascular: DENIES: Chest pain Gastrointestinal: DENIES: Abdominal pain Genitourinary: DENIES: Urinary incontinence Musculoskeletal: COMPLAINS OF: Muscle aches, Stiffness, Neck pain Neurologic: COMPLAINS OF: Abnormal gait, Localized weakness, Speech Problems, Poor Balance, DENIES: Paresthesias, Seizures (Ewa Clemente) Past Family Social History Allergies: Coded Allergies: No Known Allergies (Unverified Allergy, Unknown, 10/14/17) Past Medical History Hypertension Hyperlipidemia Scoliosis Neuropathy Past Surgical History Lumbar fusion 2 Appendectomy Hysterectomy Breast Augmentation Reported Medications Hydrochlorothiazide 12.5 Mg Cap 12.5 Mg PO DAILY Zantac (Ranitidine HCl) 150 Mg Tab 150 Mg PO DAILY Adderall Xr 24 HR (Amphetamine/Dextroamphetamine) 20 Mg Cap 20 Mg PO DAILY Once daily in the morning. Active Ordered Medications Current Medications Medications (Trade) Dose Ordered Sig/John Route PRN Reason Start Time Stop Time Status Last Admin Dose Admin Sodium Chloride (NS Flush) 2 ml UNSCH PRN IV FLUSH FLUSH AFTER USING IV ACCESS 10/14/17 22:30 Sodium Chloride (NS Flush) 2 ml BID IV FLUSH 10/15/17 09:00 10/15/17 08:08 Acetaminophen (Tylenol) 650 mg Q4H PRN PO TEMP > 100.4 10/14/17 22:30 Naloxone HCl (Narcan Inj) 0.4 mg UNSCH PRN IV PUSH SEE LABEL COMMENTS 10/14/17 22:30 Zolpidem Tartrate (Ambien) 5 mg HS PRN PO INSOMNIA 10/14/17 22:45 10/14/17 23:55 Acetaminophen/ Hydrocodone Bitart (Needles 5-325 Mg) 1 tab Q4H PRN PO pain > 4 10/14/17 22:45 10/15/17 12:24 Famotidine (Pepcid) 20 mg DAILY PO 10/15/17 09:00 10/15/17 08:08 Sodium Chloride 1,000 ml @ 84 mls/hr [id number] IV 10/14/17 23:45 10/15/17 12:24 Family History Father: Diabetes Social History Tobacco use: 1 pack per day. Rare alcohol. Denies illicit drugs (Ewa Clemente) Physical Exam Vital Signs Vital Signs Date Time Temp Pulse Resp B/P (MAP) Pulse Ox O2 Delivery O2 Flow Rate FiO2 10/15/17 11:59 98.2 72 18 113/69 (84) 99 10/15/17 07:27 98.1 79 16 106/62 (77) 98 10/15/17 03:55 98.4 84 16 108/60 (76) 99 10/14/17 23:32 98.4 87 16 108/65 (79) 96 10/14/17 19:37 106 18 138/83 (101) 99 Room Air 10/14/17 19:37 106 22 99 Room Air 10/14/17 18:09 98.3 111 17 143/83 (103) 99 Laboratory Laboratory Tests Test 10/14/17 20:00 10/15/17 04:20 10/15/17 11:51 10/15/17 14:00 White Blood Count 11.2 8.7 Red Blood Count 4.62 3.98 Hemoglobin 14.3 12.4 Hematocrit 41.9 36.1 Mean Corpuscular Volume 90.6 90.5 Mean Corpuscular Hemoglobin 31.0 31.2 Mean Corpuscular Hemoglobin Concent 34.2 34.5 Red Cell Distribution Width 13.2 13.1 Platelet Count 188 154 Mean Platelet Volume 10.9 10.4 Neutrophils (%) (Auto) 82.5 73.0 Lymphocytes (%) (Auto) 7.3 17.3 Monocytes (%) (Auto) 10.0 9.5 Eosinophils (%) (Auto) 0.0 0.1 Basophils (%) (Auto) 0.2 0.1 Neutrophils # (Auto) 9.2 6.3 Lymphocytes # (Auto) 0.8 1.5 Monocytes # (Auto) 1.1 0.8 Eosinophils # (Auto) 0.0 0.0 Basophils # (Auto) 0.0 0.0 CBC Comment DIFF FINAL DIFF FINAL Differential Comment Prothrombin Time 10.0 Prothromb Time International Ratio 1.0 Activated Partial Thromboplast Time 27.6 Blood Urea Nitrogen 10 10 Creatinine 0.74 0.58 Random Glucose 95 103 Calcium Level 10.0 9.0 Magnesium Level 2.1 Sodium Level 139 141 Potassium Level 3.3 3.3 Chloride Level 102 105 Carbon Dioxide Level 25.1 26.7 Anion Gap 12 9 Estimat Glomerular Filtration Rate 88 117 Total Creatine Kinase 124 Vitamin B12 Level 387 CSF Volume (Tube 1) 3.2 CSF Supernatant Color (tube 1) CLEAR CSF Gross Blood (Tube 1) TRACE CSF Volume (Tube 2) 3.2 CSF Supernatant Color (tube 2) CLEAR CSF Gross Blood (Tube 2) 0 CSF RBC (Tube 2) CSF Volume (Tube 3) 3.0 CSF Supernatant Color (tube 3) CLEAR CSF Gross Blood (Tube 3) 0 CSF Volume (Tube 4) 3.4 CSF Supernatant Color (tube 4) CLEAR CSF Gross Blood (Tube 4) TRACE CSF WBC (Tube 4) 2 CSF RBC (Tube 4) 28 CSF Neutrophils 0 CSF Lymphocytes 75 CSF Monocytes 25 CSF Glucose 61 CSF Total Protein 45.7 Urine Opiates Screen NEG Urine Barbiturates Screen NEG Urine Amphetamines Screen NEG Urine Benzodiazepines Screen NEG Urine Cocaine Screen NEG Urine Cannabinoids Screen NEG Test 10/15/17 14:15 10/15/17 14:18 Erythrocyte Sedimentation Rate 16 C-Reactive Protein LESS THAN 0.29 Urine Color YELLOW Urine Turbidity CLOUDY Urine pH 8.5 Urine Specific [place] 1.030 Urine Protein TRACE Urine Glucose (UA) NEG Urine Ketones NEG Urine Occult Blood NEG Urine Nitrite NEG Urine Bilirubin NEG Urine Urobilinogen LESS THAN 2.0 Urine Leukocyte Esterase NEG Urine RBC LESS THAN 1 Urine Squamous Epithelial Cells 1 Urine Amorphous Sediment RARE Urine Bacteria FEW Microscopic Urinalysis Comment CATH-CULTURE IND Date/Time Source Procedure Growth Status 10/15/17 11:51 Cerebral Spinal Fluid Lumbar Puncture Gram Stain - Final Resulted 10/15/17 11:51 Cerebral Spinal Fluid Lumbar Puncture CSF Culture Pending Resulted 10/15/17 14:18 Urine Catheterized Urine Urine Culture Pending Received (Timoteo Wilson MD) Physical Exam General: Ms. Fernandez appearing comfortable, in no obvious distress during examination. Neuro: Awake, alert and oriented to person, place, and time. Speech is clear and fluent. Can follow single and multi-step commands without apraxia. Cranial nerve examination: pupils to be equal, round, and reactive to light. Extra-ocular movements are intact with normal convergence. Facial motor are normal and symmetrical. Gross hearing is intact, bilaterally, to finger rub. The uvula is midline and elevates symmetrically with the soft palate. Sternocleidomastoid and deltoid muscles have normal and symmetrical strength. Other cranial nerves are intact. HEENT: Normocephalic, atraumatic. Gross hearing intact bilaterally. Nonicteric sclera. Neck: No massess, no JVD. Trachea midline. no meningismus or nuchal rigidity. mild decreased range of motion in flexion, extension, lateral bending and rotation with neck discomfort Musculoskeletal: No peripheral edema. No obvious deformities to extremities. No clubbing. 4/5 bilateral deltoid, and health sciences program coordinator 5/5 in biceps, triceps. In the lower extremities, strength is 4/5 right iliopsoas, quadriceps, 5-/5 in left iliopsoas, quadriceps, bilateral hamstrings, tibialis anterior, gastrocnemius, and extensor hallucis longus with some giveaway noted. Sensory examination is intact light touch in both the upper and lower extremities Deep tendon reflexes are 1+ biceps and brachioradialis, 2+ triceps bilaterally , in the upper extremities. In the lower extremities, the patellar and Achilles are 1+, bilaterally. There is a bilateral plantar flexion response. Hoffmanns sign is negative. There is no clonus. Cerebellar: intact finger to nose bilaterally Gait: no assistive devices, but with mild right ataxic gait, she has difficulty lifting right leg off ground Lungs: clear to auscultate bilaterally, nonlabored breathing on room air, no wheezing, no accessory muscle use. Heart: regular rate and rhythm Skin: warm and dry, no cyanosis or erythema. (Ewa Celmente) Result Diagram: 10/15/1741910/15/17419 Imaging Last Impressions Neck Magnetic Resonance Angiography 10/15/17 0000 Signed Impressions: CONCLUSION: 1. Negative MRA of the carotid circulation. Percent stenosis is calculated using the diameter of the stenotic region over t he diameter of the normal distal internal carotid artery Lumbar Spine MRI 10/15/17 0000 Signed Impressions: CONCLUSION: 1. Extensive artifact. I do not see an etiology for patient's myelopathy. Jyothi fact does obscure the conus. Lumbar Puncture Fluoroscopy 10/15/17 0000 Signed Impressions: CONCLUSION: 1. Uncomplicated fluoroscopically guided lumbar puncture with pressures as abo ve. Head Magnetic Resonance Angiography 10/15/17 0000 Signed Impressions: CONCLUSION: 1. Negative for major branch vessel occlusion. Cervical Spine MRI 10/15/17 0000 Signed Impressions: CONCLUSION: 1. The only interval change from the prior examination has been the developmen t of a broad-based disc protrusion at C5-C6 that effaces the right lateral rece ss and flattens the right ventral portion of the cord. There is a similar protr usion seen at C4-C5 that is stable from the prior exam. Brain MRI 10/15/17 0000 Signed Impressions: CONCLUSION: 1. Negative MRI of the brain. Do not see significant white matter changes. I d on't see evidence for an infarct. I don't see evidence for demyelinating proces s. (Ewa Clemente) Timoteo Wilson MD Oct 15, 2017 15:30 Ewa [place]e Oct 15, 2017 16:25
[2017-10-15 15:53] LABS: FREE T4 0.8 NG/DL (0.76-1.46)
[2017-10-15 16:10] VITALS: BP 113/68; PULSE 73; RESP 18; TEMP 98.4; O2SAT 98
[2017-10-15 20:00] VITALS: BP 105/64; PULSE 70; RESP 18; TEMP 98.5; O2SAT 98
[2017-10-15] MEDS: ZOLPIDEM TARTRATE 5 MG TAB PO PRN (21:01)
--- NOTE | 2017-10-15 22:20 | MG ---
cc: Reymundo Castellanos MD, Mandeep MD EEG NUMBER [id number] 8-9 Hz posterior rhythm, 20-50 microvolts, appropriate attenuation of background. Good EEG variability reactivity. Slightly ____ looking waveforms in the posterior channels. Slightly sharply contoured waveforms epoch 12. Further slowing and transition into drowsy state. Appearance of vertex waves. Tiny sharp transient F7 epoch 38. Otherwise, some K complex and spindles with a stage II sleep. Good EEG variability reactivity. Reasonable driving with photic stimulation. Single lead EKG showing sinus rhythm. INTERPRETATION: Mild nonspecific changes, which may be related to psychotropic medications, otherwise, normal awake, sleep electroencephalogram. Clinical correlation. MD JUSTINE Arzola//blue , 09:25 PM , 09:55 PM
[2017-10-16] VITALS (7 sets, daily range): BP systolic 92–114; BP diastolic 53–72; PULSE 63–79; RESP 16–20; TEMP 97.9–98.9; O2SAT 96–98
[2017-10-16] MEDS: SODIUM CHLOR 0.9% 1000 ML INJ 1,000 ML IV SCH ×2 (02:00→12:37)
[2017-10-16] MEDS: FAMOTIDINE 20 MG TAB PO SCH (08:24)
[2017-10-16] MEDS: SODIUM CHLORIDE 0.9% FLUSH 10 ML FLUSH IV FLUSH SCH ×2 (08:25→21:00)
[2017-10-16] MEDS: ACETAMINOPHEN/HYDROcodone 325 MG/5 MG TAB PO PRN ×4 (08:25→22:23)
--- NOTE | 2017-10-16 09:36 | HHI.PR ---
Subjective Remarks Follow-up visit upper and lower extremity weakness, HTN, AT HD, HLD. Patient seen and examined today. Reports lumbar puncture has been done. States that she has no acute issues overnight. She was able to walk to the bathroom and her difficulties with weakness is a little bit better compared to prior. Denies pain and discomfort. Denies SOB/ dyspnea. Denies chest pain, palpitations, headaches, dizziness. Denies fevers, chills, n/v/d. Denies dysuria. Objective Vitals Vital Signs Date Time Temp Pulse Resp B/P (MAP) Pulse Ox O2 Delivery O2 Flow Rate FiO2 10/16/17 08:00 98.2 69 16 113/65 (81) 97 10/16/17 04:00 98.2 72 16 95/53 (67) 97 10/16/17 01:30 98.2 69 16 92/55 (67) 96 10/15/17 23:26 Room Air 10/15/17 21:40 18 10/15/17 20:00 98.5 70 18 105/64 (78) 98 10/15/17 19:15 18 10/15/17 16:10 98.4 73 18 113/68 (83) 98 10/15/17 11:59 98.2 72 18 113/69 (84) 99 I/O 10/15/17 10/15/17 10/15/17 10/16/17 10/16/17 10/16/17 07:00 15:00 23:00 07:00 15:00 23:00 Intake Total 1720 ml Balance 1720 ml Intake Oral 720 ml IV Total 1000 ml # Voids 1 1 # Bowel Movements 0 Result Diagram: 10/15/17 0420 10/15/17 0420 Imaging Last Impressions Neck Magnetic Resonance Angiography 10/15/17 0000 Signed Impressions: CONCLUSION: 1. Negative MRA of the carotid circulation. Percent stenosis is calculated using the diameter of the stenotic region over t he diameter of the normal distal internal carotid artery Lumbar Spine MRI 10/15/17 Signed Impressions: CONCLUSION: 1. Extensive artifact. I do not see an etiology for patient's myelopathy. Jyothi fact does obscure the conus. Lumbar Puncture Fluoroscopy 10/15/17 Signed Impressions: CONCLUSION: 1. Uncomplicated fluoroscopically guided lumbar puncture with pressures as abo ve. Head Magnetic Resonance Angiography 10/15/17 Signed Impressions: CONCLUSION: 1. Negative for major branch vessel occlusion. Cervical Spine MRI 10/15/17 Signed Impressions: CONCLUSION: 1. The only interval change from the prior examination has been the developmen t of a broad-based disc protrusion at C5-C6 that effaces the right lateral rece ss and flattens the right ventral portion of the cord. There is a similar protr usion seen at C4-C5 that is stable from the prior exam. Brain MRI 10/15/17 Signed Impressions: CONCLUSION: 1. Negative MRI of the brain. Do not see significant white matter changes. I d on't see evidence for an infarct. I don't see evidence for demyelinating proces s. Objective Remarks GENERAL: This is a well-nourished, well-developed patient, in no apparent distress. SKIN: Warm and dry HEENT: Normocephalic. Pupils equal round and reactive. Nose without bleeding. Airway patent. NECK: Trachea midline. No JVD. Supple. CARDIOVASCULAR: Regular rate and rhythm without murmurs, gallops, or rubs. RESPIRATORY: Clear to auscultation. Breath sounds equal bilaterally. No wheezes , rales, or rhonchi. GASTROINTESTINAL: Abdomen soft, non-tender, nondistended. Bowel Sounds normoactive x4. MUSCULOSKELETAL: Extremities without clubbing, cyanosis, or edema. Plantarflex within normal, dorsiflexion weak bilaterally. Quad muscles and R OM within normal NEUROLOGICAL: Awake and alert. Oriented to time, place, person. Moves all extremities. Normal speech. Procedures Lumbar puncture A/P Problem List: (1) Elevated liver enzymes ICD Code: R74.8 - Abnormal levels of other serum enzymes Status: Acute (2) Lower extremity weakness ICD Code: R29.898 - Other symptoms and signs involving the musculoskeletal system Status: Acute (3) Upper extremity weakness ICD Code: R29.898 - Other symptoms and signs involving the musculoskeletal system Status: Acute Assessment and Plan Patient is a 37-year-old female with past medical history significant for scoliosis, hypertension, hyperlipidemia and peripheral neuropathy presents emergency department for evaluation of upper and lower extremity weakness Acute onset upper and lower extremity weakness Unclear etiology -Per patient report, head CT performed at [facility] yesterday within normal limits -Neurology consulted, appreciate recommendations -Lumbar puncture done, CSF no growth in 24 hours -MRI brain negative MRI of the brain. Not see significant white matter change. No evidence of infarct, demyelinating process. -Cervical MRI showed development of a broad based disc protrusion at C5-C6 that effaces the right lateral recess and flattens the right ventral portion of the cord. There is a similar protrusion is seen at C4-C5 that is stable from prior exam -MRA brain showed negative for major branch vessel. Neck MRA showed negative MRA of the carotid circulation -Neurosurgery consulted. Per Dr. Wilson non-operative, she may need EMG studies with neurology -Follow-up echocardiogram Hypertension -Suspect that hypertension is secondary to Adderall. -We will be holding Adderall in the hospital. -Hold off on hydrochlorothiazide. Attention deficit disorder -Hold off on amphetamines in the hospital. -Would recommend discontinuation secondary to neurologic symptoms. Hyperlipidemia -Patient does not take a statin secondary to transaminitis Hypokalemia -3.3. Replaced -Pending repeat lab DVT prop SCDs Discharge Planning Plan to DC home when cleared by neurology and neurosurgery Micki Vera Oct 16, 2017 9:36 am
[2017-10-16 13:33] LABS: CALCIUM 8.7 MG/DL (8.5-10.1); CREATININE 0.5 MG/DL (0.50-1.00)
[2017-10-16] MEDS ORDERED: WALKER WHEELS/F1 MIS (13:36)
--- NOTE | 2017-10-16 14:58 | ECHRPT ---
Indication: CVA/TIA CONCLUSIONS The left ventricular systolic function is low normal with an estimated ejection fraction in the rang e of 50- 55%. There is trace tricuspid valve regurgitation. BP: / HR: Rhythm: MEASUREMENTS (Male / Female) Normal Values Technical Quality: 2D ECHO LV Diastolic Diameter PLAX 4.5 cm 4.2 - 5.9 / 3.9 - 5.3 cm LV Systolic Diameter PLAX 3.1 cm IVS Diastolic Thickness 0.7 cm 0.6 - 1.0 / 0.6 - 0.9 cm LVPW Diastolic Thickness 0.7 cm 0.6 - 1.0 / 0.6 - 0.9 cm LV Relative Wall Thickness 0.3 RV Internal Dim ED PLAX 1.8 cm LA Systolic Diameter LX 3.0 cm 3.0 - 4.0 / 2.7 - 3.8 cm M-MODE Aortic Root Diameter MM 2.5 cm AV Cusp Separation MM 1.7 cm DOPPLER Mitral E Point Velocity 100.0 cm/s Mitral A Point Velocity 64.2 cm/s Mitral E to A Ratio 1.6 TR Peak Velocity 227.0 cm/s TR Peak Gradient 20.6 mmHg Right Atrial Pressure 10.0 mmHg Pulmonary Artery Systolic Pressu 30.6 mmHg Right Ventricular Systolic Press 30.6 mmHg FINDINGS LEFT VENTRICLE Normal left ventricular size. Wall thickness is normal. The left ventricular systolic function is low normal with an estimated ejection fraction in the rang e of 50- 55%. RIGHT VENTRICLE Normal right ventricular size and systolic function. LEFT ATRIUM The left atrial size is normal. RIGHT ATRIUM The right atrial size is normal. ATRIAL SEPTUM Normal atrial septal thickness AORTA The aortic root and proximal ascending aorta are normal in size on limited imaging. MITRAL VALVE Structurally normal mitral valve. No mitral valve stenosis or regurgitation. AORTIC VALVE Trileaflet aortic valve. No aortic valve stenosis or regurgitation. TRICUSPID VALVE Structurally normal tricuspid valve. No tricuspid valve stenosis. There is trace tricuspid valve regurgitation. PULMONARY VALVE No pulmonary valve regurgitation or stenosis. VESSELS The inferior vena cava is normal in size. PERICARDIUM No pericardial effusion. Lisandro Lopez DO (Electronically Signed) Final Date:16 October 2017 14:57
--- NOTE | 2017-10-16 16:42 | HHI.NSPN ---
Note Status Status: Progress Note Interval History Interval History Ms. Fernandez is a 37 year old female with complaints of extremity weakness and difficulty walking. The patient has had intermittent pain and paresthesias in her extremities that past several months. She underwent neurosurgical evaluation by Dr. Stewart who recommended she have surgery on neck but the patient was not interested to have more surgeries. A few days ago reports she started to develop weakness in her arms and legs. She states if first began on one leg then radiated to the other, then progressed to her arms. She also had speech difficulties. She reports also of difficulty walking feeling as if her foot is turning inwards. Her symptoms are intermittent, comes and goes. She denies bowel or bladder incontinence, fevers or chills. She has a history of scoliosis with prior multilevel spinal fusions. She had undergone Neurological consultation. An MRI brain showed no acute infarcts, and MRI head with no significant stenosis or vessel vascular formations. An MRI of the cervical spine shows a disc protrusion at C5-6 effacing the right lateral recess and flattening the right ventral cord, and also at C4-5 right disc protrusion flattening the right ventral portion of the cord with no signal changes. A lumbar puncture has been obtained and is awaiting further results. Neurosurgical evaluation is requested. 10/16: reports to be feeling better today, no new complaints. Labs, Micro, & Vital Signs Results Date Time Temp Pulse Resp B/P (MAP) Pulse Ox O2 Delivery O2 Flow Rate FiO2 10/16/17 12:00 98.0 68 16 114/72 (86) 98 10/16/17 08:00 98.2 69 16 113/65 (81) 97 10/16/17 04:00 98.2 72 16 95/53 (67) 97 10/16/17 01:30 98.2 69 16 92/55 (67) 96 10/15/17 23:26 Room Air 10/15/17 21:40 18 10/15/17 20:00 98.5 70 18 105/64 (78) 98 10/15/17 19:15 18 Constitutional Vital Signs Date Time Temp Pulse Resp B/P (MAP) Pulse Ox O2 Delivery O2 Flow Rate FiO2 10/16/17 12:00 98.0 68 16 114/72 (86) 98 10/16/17 08:00 98.2 69 16 113/65 (81) 97 10/16/17 04:00 98.2 72 16 95/53 (67) 97 10/16/17 01:30 98.2 69 16 92/55 (67) 96 10/15/17 23:26 Room Air 10/15/17 21:40 18 10/15/17 20:00 98.5 70 18 105/64 (78) 98 10/15/17 19:15 18 Review of Systems Constitutional: DENIES: Fever, Chills Musculoskeletal: COMPLAINS OF: Neck pain Neurologic: COMPLAINS OF: Localized weakness, Paresthesias, DENIES: Seizures Physical Exam General: Ms. Fernandez appearing comfortable, in no obvious distress during examination. Neuro: Awake, alert and oriented to person, place, and time. Speech is clear and fluent. Can follow single and multi-step commands without apraxia. Cranial nerve examination: pupils equal, round, and reactive to light. Extra- ocular movements are intact. Facial motor are normal and symmetrical. Gross hearing is intact, bilaterally, to finger rub. The uvula is midline and elevates symmetrically with the soft palate. Sternocleidomastoid and deltoid muscles have normal and symmetrical strength. Other cranial nerves are intact. HEENT: Normocephalic, atraumatic. Gross hearing intact bilaterally. Nonicteric sclera. Neck: No masses, no JVD. Trachea midline. no meningismus or nuchal rigidity. mild decreased range of motion in flexion, extension, lateral bending and rotation with neck discomfort Musculoskeletal: No peripheral edema. No obvious deformities to extremities. No clubbing. 4/5 bilateral deltoid, and driver material handler 5/5 in biceps, triceps. In the lower extremities, strength is 4/5 right iliopsoas, quadriceps, 5-/5 in left iliopsoas, quadriceps, bilateral hamstrings, tibialis anterior, gastrocnemius, and extensor hallucis longus with some giveaway noted. Sensory examination is intact light touch in both the upper and lower extremities Deep tendon reflexes are 1+ biceps and brachioradialis, 2+ triceps bilaterally , in the upper extremities. In the lower extremities, the patellar and Achilles are 1+, bilaterally. There is a bilateral plantar flexion response. Hoffmanns sign is negative. There is no clonus. Cerebellar: intact finger to nose bilaterally Gait: no assistive devices, but with mild right ataxic gait, she has difficulty lifting right leg off ground Lungs: clear to auscultate bilaterally, nonlabored breathing on room air, no wheezing, no accessory muscle use. Heart: regular rate and rhythm Skin: warm and dry, no cyanosis or erythema. Medications Current Medications Current Medications Medications (Trade) Dose Ordered Sig/John Route PRN Reason Start Time Stop Time Status Last Admin Dose Admin Sodium Chloride (NS Flush) 2 ml UNSCH PRN IV FLUSH FLUSH AFTER USING IV ACCESS 10/14/17 22:30 Sodium Chloride (NS Flush) 2 ml BID IV FLUSH 10/15/17 09:00 10/15/17 08:08 Acetaminophen (Tylenol) 650 mg Q4H PRN PO TEMP > 100.4 10/14/17 22:30 Naloxone HCl (Narcan Inj) 0.4 mg UNSCH PRN IV PUSH SEE LABEL COMMENTS 10/14/17 22:30 Zolpidem Tartrate (Ambien) 5 mg HS PRN PO INSOMNIA 10/14/17 22:45 10/15/17 21:01 Acetaminophen/ Hydrocodone Bitart ([place] 5-325 Mg) 1 tab Q4H PRN PO pain > 4 10/14/17 22:45 10/16/17 12:37 Famotidine (Pepcid) 20 mg DAILY PO 10/15/17 09:00 10/16/17 08:24 Sodium Chloride 1,000 ml @ 84 mls/hr [id number] IV 10/14/17 23:45 10/16/17 12:37 Medical Decision Making MDM Remarks 37 y/o female presents with weakness in extremities, speech difficulties MRI Cervical spine with disc bulges at C4-5 and C5-6 effacing the right lateral recess without cord compression Last Impressions Neck Magnetic Resonance Angiography 10/15/17 0000 Signed Impressions: CONCLUSION: 1. Negative MRA of the carotid circulation. Percent stenosis is calculated using the diameter of the stenotic region over t he diameter of the normal distal internal carotid artery Lumbar Spine MRI 10/15/17 0000 Signed Impressions: CONCLUSION: 1. Extensive artifact. I do not see an etiology for patient's myelopathy. Jyothi fact does obscure the conus. Lumbar Puncture Fluoroscopy 10/15/17 0000 Signed Impressions: CONCLUSION: 1. Uncomplicated fluoroscopically guided lumbar puncture with pressures as abo ve. Head Magnetic Resonance Angiography 10/15/17 0000 Signed Impressions: CONCLUSION: 1. Negative for major branch vessel occlusion. Cervical Spine MRI 10/15/17 0000 Signed Impressions: CONCLUSION: 1. The only interval change from the prior examination has been the developmen t of a broad-based disc protrusion at C5-C6 that effaces the right lateral rece ss and flattens the right ventral portion of the cord. There is a similar protr usion seen at C4-C5 that is stable from the prior exam. Brain MRI 10/15/17 0000 Signed Impressions: CONCLUSION: 1. Negative MRI of the brain. Do not see significant white matter changes. I d on't see evidence for an infarct. I don't see evidence for demyelinating proces s. Plan Plan Remarks cont nonsurgical management of cervical spondylosis, Neurology following, EMG x [address] Wilson continue Physical Therapy, ok to mobilize, up in chair from NRS standpoint [place] Oct 16, 2017 16:42
--- NOTE | 2017-10-16 17:34 | HHI.PR ---
Subjective Remarks NOT SEEN Objective Vitals Vital Signs Date Time Temp Pulse Resp B/P (MAP) Pulse Ox O2 Delivery O2 Flow Rate FiO2 10/16/17 12:00 98.0 68 16 114/72 (86) 98 10/16/17 08:00 98.2 69 16 113/65 (81) 97 10/16/17 04:00 98.2 72 16 95/53 (67) 97 10/16/17 01:30 98.2 69 16 92/55 (67) 96 10/15/17 23:26 Room Air 10/15/17 21:40 18 10/15/17 20:00 98.5 70 18 105/64 (78) 98 10/15/17 19:15 18 I/O 10/15/17 10/15/17 10/15/17 10/16/17 10/16/17 10/16/17 07:00 15:00 23:00 07:00 15:00 23:00 Intake Total 1720 ml Balance 1720 ml Intake Oral 720 ml IV Total 1000 ml # Voids 1 1 # Bowel Movements 0 Result Diagram: 10/15/17 0420 10/16/17 1150 Imaging Last Impressions Neck Magnetic Resonance Angiography 10/15/17 0000 Signed Impressions: CONCLUSION: 1. Negative MRA of the carotid circulation. Percent stenosis is calculated using the diameter of the stenotic region over t he diameter of the normal distal internal carotid artery Lumbar Spine MRI 10/15/17 0000 Signed Impressions: CONCLUSION: 1. Extensive artifact. I do not see an etiology for patient's myelopathy. Jyothi fact does obscure the conus. Lumbar Puncture Fluoroscopy 10/15/17 Signed Impressions: CONCLUSION: 1. Uncomplicated fluoroscopically guided lumbar puncture with pressures as abo ve. Head Magnetic Resonance Angiography 10/15/17 Signed Impressions: CONCLUSION: 1. Negative for major branch vessel occlusion. Cervical Spine MRI 10/15/17 Signed Impressions: CONCLUSION: 1. The only interval change from the prior examination has been the developmen t of a broad-based disc protrusion at C5-C6 that effaces the right lateral rece ss and flattens the right ventral portion of the cord. There is a similar protr usion seen at C4-C5 that is stable from the prior exam. Brain MRI 10/15/17 Signed Impressions: CONCLUSION: 1. Negative MRI of the brain. Do not see significant white matter changes. I d on't see evidence for an infarct. I don't see evidence for demyelinating proces s. Objective Remarks GENERAL: This is a well-nourished, well-developed patient, in no apparent distress. SKIN: Warm and dry HEENT: Normocephalic. Pupils equal round and reactive. Nose without bleeding. Airway patent. NECK: Trachea midline. No JVD. Supple. CARDIOVASCULAR: Regular rate and rhythm without murmurs, gallops, or rubs. RESPIRATORY: Clear to auscultation. Breath sounds equal bilaterally. No wheezes , rales, or rhonchi. GASTROINTESTINAL: Abdomen soft, non-tender, nondistended. Bowel Sounds normoactive x4. MUSCULOSKELETAL: Extremities without clubbing, cyanosis, or edema. Plantarflex within normal, dorsiflexion weak bilaterally. Quad muscles and R OM within normal NEUROLOGICAL: Awake and alert. Oriented to time, place, person. Moves all extremities. Normal speech. Procedures Lumbar puncture A/P Problem List: (1) Elevated liver enzymes ICD Code: R74.8 - Abnormal levels of other serum enzymes Status: Acute (2) Lower extremity weakness ICD Code: R29.898 - Other symptoms and signs involving the musculoskeletal system Status: Acute (3) Upper extremity weakness ICD Code: R29.898 - Other symptoms and signs involving the musculoskeletal system Status: Acute Assessment and Plan Patient is a 37-year-old female with past medical history significant for scoliosis, hypertension, hyperlipidemia and peripheral neuropathy presents emergency department for evaluation of upper and lower extremity weakness Acute onset upper and lower extremity weakness Unclear etiology -Per patient report, head CT performed at [facility] yesterday within normal limits -Neurology consulted, appreciate recommendations -Lumbar puncture done, CSF no growth in 24 hours -MRI brain negative MRI of the brain. Not see significant white matter change. No evidence of infarct, demyelinating process. -Cervical MRI showed development of a broad based disc protrusion at C5-C6 that effaces the right lateral recess and flattens the right ventral portion of the cord. There is a similar protrusion is seen at C4-C5 that is stable from prior exam -MRA brain showed negative for major branch vessel. Neck MRA showed negative MRA of the carotid circulation -Neurosurgery consulted. Per Dr. Wilson non-operative, she may need EMG studies with neurology -Follow-up echocardiogram Hypertension -Suspect that hypertension is secondary to Adderall. -We will be holding Adderall in the hospital. -Hold off on hydrochlorothiazide. Attention deficit disorder -Hold off on amphetamines in the hospital. -Would recommend discontinuation secondary to neurologic symptoms. Hyperlipidemia -Patient does not take a statin secondary to transaminitis Hypokalemia -3.3. Replaced -Pending repeat lab DVT prop SCDs Discharge Planning per neuro and NS Problem Qualifiers (1) Lower extremity weakness: Qualified Codes: R29.898 - Other symptoms and signs involving the musculoskeletal system Umberto Alonzo MD Oct 16, 2017 17:34
[2017-10-16] MEDS: ZOLPIDEM TARTRATE 5 MG TAB PO PRN (22:23)
[2017-10-17 04:00] VITALS: BP 109/66; PULSE 67; RESP 18; TEMP 97.9; O2SAT 96
[2017-10-17] MEDS: SODIUM CHLOR 0.9% 1000 ML INJ 1,000 ML IV SCH ×2 (04:46→11:20)
[2017-10-17] MEDS: FAMOTIDINE 20 MG TAB PO SCH (08:28)
[2017-10-17] MEDS: ACETAMINOPHEN/HYDROcodone 325 MG/5 MG TAB PO PRN ×2 (08:28→12:30)
[2017-10-17] MEDS: SODIUM CHLORIDE 0.9% FLUSH 10 ML FLUSH IV FLUSH SCH (08:30)
[2017-10-17 09:03] VITALS: BP 112/68; PULSE 65; RESP 18; TEMP 98.2; O2SAT 99
[2017-10-17 10:03] LABS: PROTEIN C ACTIVITY 124 % (70 - 150); PROTEIN S ACTIVITY 92 % (50 - 160)
[2017-10-17 12:00] VITALS: BP 117/76; PULSE 73; RESP 18; TEMP 98.7; O2SAT 100
--- NOTE | 2017-10-17 13:54 | HHI.NSPN ---
Note Status Status: Progress Note Interval History Interval History Ms. Fernandez is a 37 year old female with complaints of extremity weakness and difficulty walking. The patient has had intermittent pain and paresthesias in her extremities that past several months. She underwent neurosurgical evaluation by Dr. Stewart who recommended she have surgery on neck but the patient was not interested to have more surgeries. A few days ago reports she started to develop weakness in her arms and legs. She states if first began on one leg then radiated to the other, then progressed to her arms. She also had speech difficulties. She reports also of difficulty walking feeling as if her foot is turning inwards. Her symptoms are intermittent, comes and goes. She denies bowel or bladder incontinence, fevers or chills. She has a history of scoliosis with prior multilevel spinal fusions. She had undergone Neurological consultation. An MRI brain showed no acute infarcts, and MRI head with no significant stenosis or vessel vascular formations. An MRI of the cervical spine shows a disc protrusion at C5-6 effacing the right lateral recess and flattening the right ventral cord, and also at C4-5 right disc protrusion flattening the right ventral portion of the cord with no signal changes. A lumbar puncture has been obtained and is awaiting further results. Neurosurgical evaluation is requested. 10/16: reports to be feeling better today, no new complaints. 10/17: states she feels her strength has improved, however today reports of neck stiffness as she has been laying in bed. EMG pending. Labs, Micro, & Vital Signs Results Date Time Temp Pulse Resp B/P (MAP) Pulse Ox O2 Delivery O2 Flow Rate FiO2 10/17/17 12:00 98.7 73 18 117/76 (90) 100 10/17/17 09:28 18 10/17/17 09:03 98.2 65 18 112/68 (83) 99 10/17/17 04:00 97.9 67 18 109/66 (80) 96 10/16/17 23:50 98.9 63 18 97/56 (70) 98 10/16/17 23:42 Room Air 10/16/17 19:05 97.9 79 20 112/62 (79) 97 10/16/17 16:00 97.9 75 16 104/67 (79) 98 Constitutional Vital Signs Date Time Temp Pulse Resp B/P (MAP) Pulse Ox O2 Delivery O2 Flow Rate FiO2 10/17/17 12:00 98.7 73 18 117/76 (90) 100 10/17/17 09:28 18 10/17/17 09:03 98.2 65 18 112/68 (83) 99 10/17/17 04:00 97.9 67 18 109/66 (80) 96 10/16/17 23:50 98.9 63 18 97/56 (70) 98 10/16/17 23:42 Room Air 10/16/17 19:05 97.9 79 20 112/62 (79) 97 10/16/17 16:00 97.9 75 16 104/67 (79) 98 Review of Systems Musculoskeletal: COMPLAINS OF: Stiffness, Neck pain Physical Exam General: Ms. Fernandez appearing comfortable, in no obvious distress during examination. Neuro: Awake, alert and oriented. Speech is clear and fluent, no dysarthria noted. Can follow single and multi-step commands without apraxia. Cranial nerve examination: pupils equal, round, and reactive to light. Extra-ocular movements are intact. Facial motor are normal and symmetrical. Other cranial nerves are intact. HEENT: Normocephalic, atraumatic. Gross hearing intact bilaterally. Nonicteric sclera. Neck: No masses, no JVD. Trachea midline. no meningismus or nuchal rigidity. mild decreased range of motion in flexion, extension, lateral bending and rotation with neck discomfort Musculoskeletal: No peripheral edema. No obvious deformities to extremities. No clubbing. Moving major muscle groups of all four extremities well. Sensory examination is intact light touch in both the upper and lower extremities Deep tendon reflexes are 1+ biceps and brachioradialis, 2+ triceps bilaterally , in the upper extremities. In the lower extremities, the patellar and Achilles are 1+, bilaterally. There is a bilateral plantar flexion response. Willie sign is negative. There is no clonus. Lungs: clear to auscultate bilaterally, nonlabored breathing on room air, no wheezing, no accessory muscle use. Heart: regular rate and rhythm Skin: warm and dry, no cyanosis or erythema. Medications Current Medications Current Medications Medications (Trade) Dose Ordered Sig/John Route PRN Reason Start Time Stop Time Status Last Admin Dose Admin Sodium Chloride (NS Flush) 2 ml UNSCH PRN IV FLUSH FLUSH AFTER USING IV ACCESS 10/14/17 22:30 Sodium Chloride (NS Flush) 2 ml BID IV FLUSH 10/15/17 09:00 10/15/17 08:08 Acetaminophen (Tylenol) 650 mg Q4H PRN PO TEMP > 100.4 10/14/17 22:30 Naloxone HCl (Narcan Inj) 0.4 mg UNSCH PRN IV PUSH SEE LABEL COMMENTS 10/14/17 22:30 Zolpidem Tartrate (Ambien) 5 mg HS PRN PO INSOMNIA 10/14/17 22:45 10/16/17 22:23 Acetaminophen/ Hydrocodone Bitart ([place] 5-325 Mg) 1 tab Q4H PRN PO pain > 4 10/14/17 22:45 10/17/17 12:30 Famotidine (Pepcid) 20 mg DAILY PO 10/15/17 09:00 10/17/17 08:28 Sodium Chloride 1,000 ml @ 84 mls/hr [id number] IV 10/14/17 23:45 10/17/17 04:46 Medical Decision Making MDM Remarks 37 y/o female presents with weakness in extremities, speech difficulties MRI Cervical spine with disc bulges at C4-5 and C5-6 effacing the right lateral recess without cord compression patient reports weakness is improved, neck stiffness due to laying in bed Last Impressions Neck Magnetic Resonance Angiography 10/15/17 0000 Signed Impressions: CONCLUSION: 1. Negative MRA of the carotid circulation. Percent stenosis is calculated using the diameter of the stenotic region over t he diameter of the normal distal internal carotid artery Lumbar Spine MRI 10/15/17 0000 Signed Impressions: CONCLUSION: 1. Extensive artifact. I do not see an etiology for patient's myelopathy. Jyothi fact does obscure the conus. Lumbar Puncture Fluoroscopy 10/15/17 0000 Signed Impressions: CONCLUSION: 1. Uncomplicated fluoroscopically guided lumbar puncture with pressures as abo ve. Head Magnetic Resonance Angiography 10/15/17 0000 Signed Impressions: CONCLUSION: 1. Negative for major branch vessel occlusion. Cervical Spine MRI 10/15/17 0000 Signed Impressions: CONCLUSION: 1. The only interval change from the prior examination has been the developmen t of a broad-based disc protrusion at C5-C6 that effaces the right lateral rece ss and flattens the right ventral portion of the cord. There is a similar protr usion seen at C4-C5 that is stable from the prior exam. Brain MRI 10/15/17 0000 Signed Impressions: CONCLUSION: 1. Negative MRI of the brain. Do not see significant white matter changes. I d on't see evidence for an infarct. I don't see evidence for demyelinating proces s. Plan Plan Remarks cont nonsurgical management of cervical spondylosis neurology following, Dr. Wilson requests EMG, EMG pending, see if this can be done inpatient continue Physical Therapy [place] Oct 17, 2017 13:54
--- NOTE | 2017-10-17 14:42 | HHI.PR ---
Objective Vitals Vital Signs Date Time Temp Pulse Resp B/P (MAP) Pulse Ox O2 Delivery O2 Flow Rate FiO2 10/17/17 13:30 18 10/17/17 12:00 98.7 73 18 117/76 (90) 100 10/17/17 09:03 98.2 65 18 112/68 (83) 99 10/17/17 04:00 97.9 67 18 109/66 (80) 96 10/16/17 23:50 98.9 63 18 97/56 (70) 98 10/16/17 23:42 Room Air 10/16/17 19:05 97.9 79 20 112/62 (79) 97 10/16/17 16:00 97.9 75 16 104/67 (79) 98 I/O 10/16/17 10/16/17 10/16/17 10/17/17 10/17/17 10/17/17 07:00 15:00 23:00 07:00 15:00 23:00 Intake Total 1720 ml 240 ml 1680 ml Balance 1720 ml 240 ml 1680 ml Intake Oral 720 ml 240 ml 680 ml IV Total 1000 ml 1000 ml # Voids 1 2 1 # Bowel Movements 0 1 Result Diagram: 10/15/17 0420 10/16/17 1150 Procedures Lumbar puncture A/P Problem List: (1) Elevated liver enzymes ICD Code: R74.8 - Abnormal levels of other serum enzymes Status: Acute (2) Lower extremity weakness ICD Code: R29.898 - Other symptoms and signs involving the musculoskeletal system Status: Acute (3) Upper extremity weakness ICD Code: R29.898 - Other symptoms and signs involving the musculoskeletal system Status: Acute Problem Qualifiers (1) Lower extremity weakness: Qualified Codes: R29.898 - Other symptoms and signs involving the musculoskeletal system Bob Nicholson MD Oct 17, 2017 14:42
--- NOTE | 2017-10-17 15:05 | HHI.DCPOC ---
Discharge Care Plan Diagnosis: (1) ADHD (2) Upper extremity weakness (3) Lower extremity weakness (4) Hyperlipidemia (5) Hypokalemia Goals to Promote Your Health * To prevent worsening of your condition and complications * To maintain your health at the optimal level Directions to Meet Your Goals Take your medications as prescribed Follow your dietary instruction Follow activity as directed Keep your appointments as scheduled Take your immunizations and boosters as scheduled If your symptoms worsen call your PCP, if no PCP go to Urgent Care Center or Emergency Room Smoking is Dangerous to Your Health. Avoid second hand smoke Call the 24-hour hour crisis hotline for domestic abuse at Bob Nicholson MD Oct 17, 2017 15:04
--- NOTE | 2017-10-17 15:06 | HHI.DS ---
Discharge Summary Admission Date Oct 14, 2017 at 21:27 Admitting Diagnosis Acute extremity weakness (1) Elevated liver enzymes ICD Code: R74.8 - Abnormal levels of other serum enzymes Status: Acute (2) Lower extremity weakness ICD Code: R29.898 - Other symptoms and signs involving the musculoskeletal system Status: Acute (3) Upper extremity weakness ICD Code: R29.898 - Other symptoms and signs involving the musculoskeletal system Status: Acute Procedures Lumbar puncture Brief History - From Admission 37-year-old female with past medical history significant for scoliosis, hypertension, hyperlipidemia and peripheral neuropathy presents emergency department for evaluation of upper and lower extremity weakness. The patient reports that yesterday she had bilateral foot weakness that then spread from her right leg to her left leg. She reports she was so weak she was unable to ambulate. She was seen at [facility] where a CT of the head and neck were found to be within normal limits. The patient reports that yesterday on her way to the hospital she then developed bilateral upper extremity weakness and had difficulty moving her arms and hands. She was discharged from [facility] with instructions to follow-up with her primary care physician which she did today. The patient saw her PCP who then called the neurologist on-call who suggested coming to the emergency department for further evaluation. The patient reports that her upper extremity weakness has mostly resolved but endorses intermittent slurred speech. She complains of bilateral thigh and hip pain and states her sciatica is acting up. She also endorses a headache. She denies any chest pain or shortness of breath. No abdominal pain. No nausea/vomiting/diarrhea. CBC/BMP: 10/15/17 0420 10/16/17 1150 Significant Findings Laboratory Tests Test 10/14/17 20:00 10/15/17 04:20 10/15/17 11:51 10/15/17 14:00 White Blood Count 11.2 TH/MM3 (4.0-11.0) Neutrophils (%) (Auto) 82.5 % (16.0-70.0) 73.0 % (16.0-70.0) Lymphocytes (%) (Auto) 7.3 % (9.0-44.0) Monocytes (%) (Auto) 10.0 % (0.0-8.0) 9.5 % (0.0-8.0) Neutrophils # (Auto) 9.2 TH/MM3 (1.8-7.7) Lymphocytes # (Auto) 0.8 TH/MM3 (1.0-4.8) Monocytes # (Auto) 1.1 TH/MM3 (0-0.9) Potassium Level 3.3 MEQ/L (3.5-5.1) 3.3 MEQ/L (3.5-5.1) Estimat Glomerular Filtration Rate 88 ML/MIN (>89) Red Blood Count 3.98 MIL/MM3 (4.00-5.30) CSF Gross Blood (Tube 1) TRACE (0) CSF Gross Blood (Tube 4) TRACE (0) CSF RBC (Tube 4) 28 /MM3 (NONE) CSF Total Protein 45.7 MG/DL (15.0-45.0) Test 10/15/17 14:15 10/15/17 14:18 10/15/17 17:00 10/16/17 11:50 Urine Turbidity CLOUDY (CLEAR) Urine Bacteria FEW /hpf (NONE) Chloride Level 113 MEQ/L (98-107) PE at Discharge GENERAL: This is a well-nourished, well-developed patient, in no apparent distress. SKIN: Warm and dry HEENT: Normocephalic. Pupils equal round and reactive. Nose without bleeding. Airway patent. NECK: Trachea midline. No JVD. Supple. CARDIOVASCULAR: Regular rate and rhythm without murmurs, gallops, or rubs. RESPIRATORY: Clear to auscultation. Breath sounds equal bilaterally. No wheezes , rales, or rhonchi. GASTROINTESTINAL: Abdomen soft, non-tender, nondistended. Bowel Sounds normoactive x4. MUSCULOSKELETAL: Extremities without clubbing, cyanosis, or edema. Plantarflex within normal, dorsiflexion weak bilaterally. Quad muscles and R OM within normal NEUROLOGICAL: Awake and alert. Oriented to time, place, person. Moves all extremities. Normal speech. Pt Condition on Discharge: Good Discharge Disposition: Discharge Home Discharge Instructions DIET: Follow Instructions for: Heart Healthy Diet Activities you can perform: Regular-No Restrictions Bob Nicholson MD Oct 17, 2017 15:06
[2017-10-17] MEDS ORDERED: ACETAMINOPHEN/HYDROcodone 325 MG/10 MG TAB PO PRN (15:45)
[2017-10-17 16:00] VITALS: BP 127/85; PULSE 76; RESP 20; TEMP 98.9; O2SAT 100
[2017-10-17 17:37] VITALS: RESP 18
[2017-10-18 19:53] LABS: FACTOR VIII(8) ACTIVITY 77 (50-180)
[2017-10-18 23:53] LABS: STRIATED MUCLE AB TITER ND (<1:40)
[2017-10-19 07:53] LABS: DRVVT 1:1 MIX ND (CORRECTED); DRVVT CONFIRM ND (NEGATIVE); HEXAGONAL PHASE CONFIRM ND (NEGATIVE)
[2017-10-20 14:45] LABS: ANA PATTERN DIFFUSE
== END 2017-10-17 18:56 | disposition home or self-care (01) | DRG 552 ==
LOC: NEPC 17:54 → NEDA 21:27 → NEPGCP 23:14 → N06A 10-15 14:28
PROVIDERS: ADMIT Hospitalist; ATTEND Hospitalist
PROC: 009U3ZX Drainage of Spinal Canal, Percutaneous Approach, Diagnostic (ICD-10-PCS; principal; 2017-10-15)
DX: M50.222 Other cervical disc displacement at C5-C6 level (principal); G62.9 Polyneuropathy, unspecified; I10 Essential (primary) hypertension; M47.812 Spondylosis without myelopathy or radiculopathy, cervical region; M50.221 Other cervical disc displacement at C4-C5 level; M41.9 Scoliosis, unspecified; E78.5 Hyperlipidemia, unspecified; E87.6 Hypokalemia; F17.200 Nicotine dependence, unspecified, uncomplicated; F98.8 Other specified behavioral and emotional disorders with onset usually occurring in childhood and adolescence
CPT/HCPCS: 62270; 70544; 70548; 70551; 72141; 72158; 77003; 80048; 80307; 81001; 81240; 81241; 82550; 82607; 82945; 83519; 83735; 84157; 84439; 84443; 85025; 85240; 85303; 85306; 85610; 85613; 85652; 85730; 86038; 86039; 86140; 86255; 86618; 87070; 87086; 87205; 87476; 89051; 93005; 93306; 95819; 99285; A9579; J2060; J7030